=== PATIENT | female | born 1995 | race Caucasian/White ===

== ENCOUNTER → 2017-03-05 | Outpatient (CLI) | payer BC ==
[2017-03-05 09:42] LABS: Basophils % (A) 0 %; CH 29.8; CHCM 34.4; Eosinophils # (A) 0.4 k/uL (0-0.7); Eosinophils % (A) 3 %; HCT 39.6 % (34.0-46.0); HDW 2.44; Luc # (Auto) 0.12; Luc % (Auto) 1; Lymphocytes # (A) 1.6 k/uL (1.0-4.8); Lymphocytes % (A) 14 %; MCH 28.4 pg (25.0-35.0); MCHC 32.7 g/dL (31.0-37.0); MCV 86.9 fL (80.0-100.0); Mean Platelet Volume 6.7; Monocytes # (A) 0.4 k/uL (0-1.0); Monocytes % (A) 4 %; Neutrophils # (A) 8.9 k/uL (1.3-7.7); Neutrophils % (A) 78 %; RBC 4.56 m/uL (3.80-5.40); RDW 13.4 % (11.5-15.5); WBC 11.5 k/uL (4.0-11.0); WBC (Perox) 11.97
[2017-03-05 09:54] LABS: ALT 27 U/L (9-52); AST 15 U/L (14-36); Alkaline Phosphatase 77 U/L (38-126); Anion Gap 10 mmol/L; Blood Urea Nitrogen 6 mg/dL (7-17); Calcium 9.7 mg/dL (8.4-10.2); Carbon Dioxide 22 mmol/L (22-30); Chloride 106 mmol/L (98-107); Cholesterol 180 mg/dL (<200); Glucose 74 mg/dL (74-99); HDL Cholesterol 73 mg/dL (40-60); Non-African American GFR(MDRD) >60 (>60 ml/min/1.73 sqM); Potassium 4.2 mmol/L (3.5-5.1); Sodium 138 mmol/L (137-145); Total Bilirubin 0.2 mg/dL (0.2-1.3); Total Protein 7.1 g/dL (6.3-8.2)
[2017-03-05 10:22] LABS: Hepatitis B Surface Ag Index 0.05
[2017-03-05 18:39] LABS: Treponemal Ab Non-Reactive (Non-Reactive)
== END | disposition home or self-care (01) ==
LOC: LABWHC1 09:08
PROVIDERS: ATTEND Family Medicine
DX: O00.01 Abdominal pregnancy with intrauterine pregnancy (principal); J30.9 Allergic rhinitis, unspecified; R06.2 Wheezing; R53.83 Other fatigue; Z13.220 Encounter for screening for lipoid disorders; Z3A.00 Weeks of gestation of pregnancy not specified
CPT/HCPCS: 36415; 80053; 80061; 82103; 82104; 82785; 84439; 84443; 84702; 85025; 86762; 86780; 86850; 86900; 86901; 87340; 87390

== ENCOUNTER → 2017-06-03 | Outpatient (CLI) | payer BC, OTHER ==
[2017-06-03 09:51] LABS: CH 28.7; HCT 35.5 % (34.0-46.0); HDW 2.67; MCV 90.1 fL (80.0-100.0); RBC 3.93 m/uL (3.80-5.40); RDW 13.3 % (11.5-15.5); WBC 13.4 k/uL (4.0-11.0)
== END | disposition home or self-care (01) ==
LOC: LABWHC1 09:19
PROVIDERS: ATTEND Obstetrics & Gynecology
DX: Z34.82 Encounter for supervision of other normal pregnancy, second trimester (principal); Z3A.00 Weeks of gestation of pregnancy not specified
CPT/HCPCS: 36415; 82950; 85027

== ENCOUNTER → 2017-06-11 | Outpatient (CLI) | payer BC, OTHER ==
[2017-06-11 11:44] LABS: Glucose 3 Hour, Gest 104 mg/dL
== END | disposition home or self-care (01) ==
LOC: LABWHC1 07:06
PROVIDERS: ATTEND Obstetrics & Gynecology
DX: O99.810 Abnormal glucose complicating pregnancy (principal); Z3A.00 Weeks of gestation of pregnancy not specified
CPT/HCPCS: 36415; 82951; 82952

== ENCOUNTER 2017-07-17 16:54 | Outpatient (CLI) | payer BC, OTHER ==
[2017-07-17 17:40] LABS: Appearance,Urine Clear (Clear); Bilirubin,Urine Negative (Negative); Glucose,Urine (UA) Negative (Negative); Ketones,Urine Negative (Negative); Leukocyte Esterase,Urine Negative (Negative); Nitrite,Urine Negative (Negative); Protein,Urine Negative (Negative); Specific Gravity,Urine 1.003 (1.001-1.035); UA Billing (MACRO vs. MICRO) CHEM; Urobilinogen,Urine <2.0 mg/dL (<2.0)
[2017-07-17 17:51] VITALS: BP 161/92; PULSE 126; RESP 16; TEMP 98.3
[2017-07-17 18:11] LABS: Basophils % (A) 0 %; CH 28.8; CHCM 34.7; Eosinophils # (A) 0.2 k/uL (0-0.7); Eosinophils % (A) 1 %; HCT 33.6 % (34.0-46.0); HDW 2.92; HGB 11.3 gm/dL (11.4-16.0); Luc # (Auto) 0.15; Luc % (Auto) 1; Lymphocytes # (A) 1.7 k/uL (1.0-4.8); Lymphocytes % (A) 14 %; MCHC 33.5 g/dL (31.0-37.0); Mean Platelet Volume 6.5; Monocytes # (A) 0.4 k/uL (0-1.0); Monocytes % (A) 3 %; Neutrophils # (A) 9.8 k/uL (1.3-7.7); Neutrophils % (A) 80 %; RBC 4.03 m/uL (3.80-5.40); WBC 12.2 k/uL (3.8-10.6); WBC (Perox) 11.77
[2017-07-17 18:13] LABS: MCV 83.5 fL (80.0-100.0)
[2017-07-17 18:54] LABS: ALT 26 U/L (9-52); AST 14 U/L (14-36); Blood Urea Nitrogen 6 mg/dL (7-17); LDH 449 U/L (313-618); Non-African American GFR(MDRD) >60 (>60 ml/min/1.73 sqM); Uric Acid 3.9 mg/dL (3.7-7.4)
--- NOTE | 2017-07-17 19:57 | P.MSEPDOC ---
Presenting Problems - Arrival Data Date of Arrival on Unit: 07/17/17 Time of Arrival on Unit: 16:54 Mode of Transport: Ambulatory - Complaint OB-Reason for Admission/Chief Complaint: Elevated Blood Pressure Comment: Pt states BP at work 157/103 Medical History - Information : 1 Para: 0 Term: 0 : 0 Abortions: Spontaneous or Elective: 0 Number of Living Children: 0 - Gestational Age Gestational Age by MINGO (wks/days): 31 Weeks and 4 Days Review of Systems - Review of Systems Constitutional: No problems Breast: No problems ENT: No problems Cardiovascular: No problems Respiratory: No problems Gastrointestinal: No problems Genitourinary: No problems Musculoskeletal: No problems Neurological: No problems Skin: No problems Vital Signs - Temperature Temperature: 98.3 F Temperature Source: Temporal Artery Scan - Pulse Pulse Oximetery Pulse Rate: 126 Pulse Assessment Method: Pulse Oximetry - Respirations Respiratory Rate: 16 Oxygen Delivery Method: Room Air O2 Sat by Pulse Oximetry: 99 - Blood Pressure Right Arm Sitting Blood Pressure: 161/92 Blood Pressure Mean: 115 Blood Pressure Source: Automatic Cuff Medical Screen Scoring (Pre) - Cervical Exam Dilation: Exam Deferred Effacement: Exam Deferred Membranes: Intact - Uterine Contractions Frequency: N/A - Maternal Vital Signs Maternal Temperature: N/A Maternal Blood Pressure: Systolic >139 = 2 Signs of Preeclampsia: N/A Maternal Respirations: N/A - Pain Assessment Pain Intensity: 0 - Maternal Trauma Maternal Trauma: N/A - Assessment Baseline FHR: 160 Heart Rate - NICHD Category: Category I (Normal) = 0 NST: Reactive Position: N/A Station: N/A - Total Score Total Score (Pre): 2 - Level of Risk Level of Risk: Low (0-5) Physician Notification (Pre) - Physician Notified Physician Notified Date: 07/17/17 Physician Notified Time: 17:17 Physician/Practitioner Notifed:: Jarod Spoke With: Jarod New Order Received: Yes - Notification Comment Comment: [facility] labs including LDH Disposition - Disposition OB Disposition: Physician follow up in office, Discharge to home Discharge Date: 07/17/17 Discharge Time: 19:22 I agree with the RN Medical Screening Exam: Yes Risk & Benefit of care provided described in d/c instruction: Yes Risk & Benefit of Care Comment: Offered to either keep patient overnight for observation or discharge home on modified bedrest and follow up with Dr. Silva tomorrow am in the office. She requested to go home and follow up with Dr. Silva in the morning. She was advised to return to hospital immediately if any symptoms of pre-eclampsia. Advised off work until seen by Dr. Silva. Diagnosis: UNSPECIFIED MATERNAL HYPERTENSION, THIRD TRIMESTER
== END 2017-07-17 19:22 | disposition home or self-care (01) ==
LOC: FBPOP 16:54
PROVIDERS: ATTEND Obstetrics & Gynecology
DX: O16.3 Unspecified maternal hypertension, third trimester (principal); Z3A.31 31 weeks gestation of pregnancy
CPT/HCPCS: 59025; 81003; 82565; 83615; 84450; 84460; 84520; 84550; 85025; 99215

== ENCOUNTER 2017-07-24 13:13 | Outpatient (CLI) | payer BC, OTHER ==
[2017-07-24] MEDS ORDERED: BETAMET ACET-BETAMETH SOD PHOS 6 MG/ML VIAL IM SCH (13:30)
[2017-07-24 16:40] VITALS: PULSE 101; RESP 16; TEMP 97.7
--- NOTE | 2017-07-27 03:04 | P.MSEPDOC ---
Presenting Problems - Arrival Data Date of Arrival on Unit: 07/24/17 Time of Arrival on Unit: 13:25 Mode of Transport: Ambulatory Medical History - Information : 1 Para: 0 Term: 0 : 0 Abortions: Spontaneous or Elective: 0 Number of Living Children: 0 - Gestational Age Gestational Age by MINGO (wks/days): 32 Weeks and 4 Days - History Comment: pt to triage for second dose of celestone Review of Systems - Review of Systems Constitutional: No problems Breast: No problems ENT: No problems Cardiovascular: No problems Respiratory: No problems Gastrointestinal: No problems Genitourinary: No problems Musculoskeletal: No problems Neurological: No problems Skin: No problems Vital Signs - Temperature Temperature: 97.7 F Temperature Source: Temporal Artery Scan - Pulse Right Brachial Pulse Rate: 101 Pulse Assessment Method: Automatic Cuff - Respirations Respiratory Rate: 16 Oxygen Delivery Method: Room Air Medical Screen Scoring (Pre) - Cervical Exam Dilation: Exam Deferred - Uterine Contractions Frequency: N/A Duration: N/A Intensity: N/A - Maternal Vital Signs Maternal Temperature: N/A Maternal Blood Pressure: N/A Signs of Preeclampsia: N/A Maternal Respirations: N/A - Pain Assessment Pain Scale Used: Numeric (1 - 10) Pain Intensity: 0 - Maternal Trauma Maternal Trauma: N/A - Assessment Baseline FHR: 145 Heart Rate - NICHD Category: Category I (Normal) = 0 NST: Reactive Position: N/A Station: N/A - Total Score Total Score (Pre): 0 - Level of Risk Level of Risk: Low (0-5) Physician Notification (Pre) - Physician Notified Physician Notified Date: 07/24/17 Physician Notified Time: 14:30 Physician/Practitioner Notifed:: karlos Spoke With: karlos New Order Received: Yes - Notification Comment Comment: after dose of celestone and reactive nst pt may be discharged home Physician Notification (Post) - Notification Comment Comment: celestone given, discharge instructions given. Disposition - Disposition OB Disposition: Discharge to home Discharge Date: 07/24/17 Discharge Time: 14:19 I agree with the RN Medical Screening Exam: Yes Risk & Benefit of care provided described in d/c instruction: Yes Diagnosis: GESTATIONAL HTN W/O SIGNIFICANT PROTEINURIA, THIRD TRIMESTER
== END 2017-07-24 14:21 | disposition home or self-care (01) ==
LOC: FBPOP 13:13
PROVIDERS: ATTEND Obstetrics & Gynecology
DX: O13.3 Gestational [pregnancy-induced] hypertension without significant proteinuria, third trimester (principal); Z68.32 Body mass index [BMI] 32.0-32.9, adult
CPT/HCPCS: 59025; 99214; 96372; J0702

== ENCOUNTER → 2017-08-01 | Outpatient (CLI) | payer BC, OTHER ==
[2017-08-01 14:37] LABS: HCT 34.3 % (34.0-46.0); HGB 11.3 gm/dL (11.4-16.0); MCH 27.8 pg (25.0-35.0); MCV 84.3 fL (80.0-100.0); Mean Platelet Volume 6.9; Platelet Count 376 k/uL (150-450); RBC 4.07 m/uL (3.80-5.40); RDW 14.5 % (11.5-15.5); WBC 16.5 k/uL (3.8-10.6)
[2017-08-01 14:49] LABS: ALT 31 U/L (9-52); AST 15 U/L (14-36); LDH 437 U/L (313-618); Uric Acid 5.1 mg/dL (3.7-7.4)
[2017-08-01 14:52] LABS: Creatinine,Urine Random 30.1 mg/dL
== END | disposition home or self-care (01) ==
LOC: LABWHC1 14:11
PROVIDERS: ATTEND Obstetrics & Gynecology
DX: O16.9 Unspecified maternal hypertension, unspecified trimester (principal); Z3A.00 Weeks of gestation of pregnancy not specified
CPT/HCPCS: 36415; 82565; 82570; 83615; 84156; 84450; 84460; 84550; 85027

== ENCOUNTER 2017-08-08 09:41 | Outpatient (CLI) | payer BC, OTHER ==
[2017-08-08 10:25] VITALS: PULSE 113; RESP 17; TEMP 97.3
[2017-08-08 10:31] LABS: Basophils # (A) 0.1 k/uL (0-0.2); Basophils % (A) 0 %; Eosinophils # (A) 0.1 k/uL (0-0.7); Eosinophils % (A) 1 %; HCT 31.1 % (34.0-46.0); HGB 10.4 gm/dL (11.4-16.0); Lymphocytes # (A) 1.6 k/uL (1.0-4.8); Lymphocytes % (A) 13 %; MCHC 33.4 g/dL (31.0-37.0); MCV 83.7 fL (80.0-100.0); Mean Platelet Volume 7.2; Monocytes # (A) 0.5 k/uL (0-1.0); Monocytes % (A) 4 %; Neutrophils # (A) 10.1 k/uL (1.3-7.7); Neutrophils % (A) 81 %; Platelet Count 290 k/uL (150-450); RBC 3.71 m/uL (3.80-5.40); RDW 14.7 % (11.5-15.5); WBC 12.4 k/uL (3.8-10.6)
[2017-08-08 10:39] LABS: ALT 25 U/L (9-52); AST 14 U/L (14-36); Blood Urea Nitrogen 9 mg/dL (7-17); Uric Acid 5.5 mg/dL (3.7-7.4)
[2017-08-08 11:04] LABS: Amorphous Sediment,Urine Rare /hpf; Appearance,Urine Cloudy (Clear); Bacteria,Urine Moderate /hpf; Bilirubin,Urine Negative (Negative); Blood,Urine Negative (Negative); Color,Urine Yellow; Glucose,Urine (UA) Negative (Negative); Ketones,Urine Negative (Negative); Leukocyte Esterase,Urine Small (Negative); Mucus,Urine Rare /hpf; Nitrite,Urine Negative (Negative); Protein,Urine Negative (Negative); RBC,Urine 1 /hpf (0-5); Squamous Epithelial Cell,Urine 9 /hpf (0-4); Urobilinogen,Urine <2.0 mg/dL (<2.0); WBC,Urine 6 /hpf (0-5)
[2017-08-08 12:28] VITALS: BP 141/94
--- NOTE | 2017-08-08 12:48 | P.MSEPDOC ---
Presenting Problems - Arrival Data Date of Arrival on Unit: 08/08/17 Time of Arrival on Unit: 09:41 Mode of Transport: Ambulatory - Complaint OB-Reason for Admission/Chief Complaint: NST, PIH Comment: [facility] labs. Written script per Dr. Silva. Medical History - Information : 1 Para: 0 Term: 0 : 0 Abortions: Spontaneous or Elective: 0 Number of Living Children: 0 - Gestational Age Gestational Age by MINGO (wks/days): 34 Weeks and 5 Days - History Comment: Mild preeclampsia per Dr. Silva. Review of Systems - Review of Systems Constitutional: No problems Breast: No problems ENT: No problems Cardiovascular: No problems Respiratory: No problems Gastrointestinal: No problems Genitourinary: No problems Musculoskeletal: No problems Neurological: No problems Skin: No problems Vital Signs - Temperature Temperature: 97.3 F Temperature Source: Temporal Artery Scan - Pulse Pulse Oximetery Pulse Rate: 113 Pulse Assessment Method: Pulse Oximetry - Respirations Respiratory Rate: 17 Oxygen Delivery Method: Room Air - Blood Pressure Right Arm Blood Pressure: 141/94 Blood Pressure Mean: 109 Blood Pressure Source: Automatic Cuff Medical Screen Scoring (Pre) - Cervical Exam Dilation: Exam Deferred Effacement: Exam Deferred Membranes: Intact - Uterine Contractions Frequency: N/A Duration: N/A Intensity: N/A - Maternal Vital Signs Maternal Temperature: N/A Maternal Blood Pressure: N/A Signs of Preeclampsia: N/A Maternal Respirations: N/A - Pain Assessment Pain Scale Used: Numeric (1 - 10) Pain Intensity: 0 - Maternal Trauma Maternal Trauma: N/A - Assessment Baseline FHR: 145 Heart Rate - NICHD Category: Category I (Normal) = 0 NST: Reactive Position: N/A Station: N/A - Total Score Total Score (Pre): 0 - Level of Risk Level of Risk: N/A Physician Notification (Pre) - Physician Notified Physician Notified Date: 08/08/17 Physician Notified Time: 10:20 Physician/Practitioner Notifed:: Ricardo Spoke With: Ricardo New Order Received: Yes (Previous written orders reviewed) Medical Screen Scoring (Post) - Cervical Exam Dilation: Exam Deferred Effacement: Exam Deferred Membranes: Intact - Uterine Contractions Frequency: N/A Duration: N/A Intensity: N/A - Maternal Vital Signs Maternal Temperature: N/A Signs of Preeclampsia: N/A Maternal Respirations: N/A - Pain Assessment Pain Scale Used: Numeric (1 - 10) Pain Intensity: 0 - Maternal Trauma Maternal Trauma: N/A - Assessment Heart Rate: 145 Heart Rate - NICHD Category: Category I (Normal) = 0 NST: Reactive Position: N/A Station: N/A - Total Score Total Score (Post): 0 - Post Treatment Level of Risk Post Treatment Level of Risk: Low (0-5) Physician Notification (Post) - Physician Notified Physician Notified Date: 08/08/17 Physician Notified Time: 11:35 Physician/Practitioner Notified:: ricardo Spoke With: ricardo New Order Received: Yes (discharge orders) Disposition - Disposition OB Disposition: Discharge to home Discharge Date: 08/08/17 Discharge Time: 11:40 I agree with the RN Medical Screening Exam: Yes Risk & Benefit of care provided described in d/c instruction: Yes Diagnosis: GESTATIONAL HTN W/O SIGNIFICANT PROTEINURIA, THIRD TRIMESTER
== END 2017-08-08 11:40 | disposition home or self-care (01) ==
LOC: FBPOP 09:41
PROVIDERS: ATTEND Obstetrics & Gynecology
DX: O13.3 Gestational [pregnancy-induced] hypertension without significant proteinuria, third trimester (principal); Z3A.34 34 weeks gestation of pregnancy
CPT/HCPCS: 59025; 81001; 82565; 82570; 83615; 84156; 84450; 84460; 84520; 84550; 85025; 99215

== ENCOUNTER 2017-08-18 11:38 | Outpatient (CLI) | payer BC, OTHER ==
[2017-08-18 12:23] VITALS: BP 146/86; PULSE 110; RESP 17; TEMP 97.8
== END 2017-08-18 12:55 | disposition home or self-care (01) ==
LOC: FBPOP 11:38
PROVIDERS: ATTEND Obstetrics & Gynecology
DX: O26.93 Pregnancy related conditions, unspecified, third trimester (principal); Z3A.36 36 weeks gestation of pregnancy
CPT/HCPCS: 59025

== ENCOUNTER 2017-08-25 15:35 | Inpatient (IN) | payer BC, OTHER ==
[2017-08-25] MEDS ORDERED: DINOPROSTONE 10 MG INSERT.ER VAGINAL ONE (15:49)
[2017-08-25 15:57] VITALS: BMI 38.3
[2017-08-25] MEDS ORDERED: LIDOCAINE 1% (PF) 10 MG/ML (30 ML SDV) SQ PRN (17:03)
[2017-08-25] MEDS ORDERED: TERBUTALINE 1 MG/ML VIAL SQ PRN (17:03)
[2017-08-25] MEDS ORDERED: METHYLERGONOVINE 0.2 MG/ML 1 ML AMP IM PRN (17:03)
[2017-08-25] MEDS ORDERED: CARBOPROST TROMETHAMINE 250 MCG/ML 1 ML AMP IM PRN (17:03)
[2017-08-25] MEDS ORDERED: OXYTOCIN 10 UNIT/ML 1 ML VIAL IM PRN (17:03)
[2017-08-25] MEDS: LACTATED RINGERS 1,000 ML IV SCH (19:49)
[2017-08-25] MEDS: OXYTOCIN 20 UNITS/1000 ML NS 1,000 ML IV SCH (19:49)
[2017-08-25] MEDS: FAMOTIDINE 20 MG TAB PO SCH (21:13)
[2017-08-25] MEDS: LABETALOL 200 MG TAB PO SCH (21:13)
[2017-08-26] MEDS: LACTATED RINGERS 1,000 ML IV SCH ×4 (00:13→16:27)
[2017-08-26 00:26] LABS: Basophils % (A) 0 %; Eosinophils # (A) 0.2 k/uL (0-0.7); Eosinophils % (A) 1 %; HCT 32.7 % (34.0-46.0); Lymphocytes # (A) 1.9 k/uL (1.0-4.8); Lymphocytes % (A) 12 %; MCH 28.9 pg (25.0-35.0); MCHC 33.6 g/dL (31.0-37.0); Mean Platelet Volume 6.7; Monocytes # (A) 0.6 k/uL (0-1.0); Monocytes % (A) 4 %; Neutrophils # (A) 12.9 k/uL (1.3-7.7); Neutrophils % (A) 81 %; Platelet Count 330 k/uL (150-450); RBC 3.81 m/uL (3.80-5.40); RDW 13.9 % (11.5-15.5); WBC 15.8 k/uL (3.8-10.6)
[2017-08-26] MEDS: BUTORPHANOL 1 MG/ML 1 ML VIAL IV PRN ×6 (00:29→12:04)
[2017-08-26 00:34] LABS: INR 0.9 (<1.2); Partial Thromboplastin Time 23.8 sec (22.0-30.0); Prothrombin Time 9.3 sec (9.0-12.0)
[2017-08-26] MEDS ORDERED: AMPICILLIN 2,000 MG in SODIUM CHLORIDE 0.9% 100 ML IVPB STA (03:11)
[2017-08-26] MEDS: OXYTOCIN 20 UNITS/1000 ML NS 1,000 ML IV SCH (06:19)
[2017-08-26] MEDS: LABETALOL 200 MG TAB PO SCH ×2 (07:28→16:23)
[2017-08-26] MEDS: AMPICILLIN 1,000 MG in SODIUM CHLORIDE 0.9% 50 ML IVPB SCH ×3 (07:51→16:23)
[2017-08-26] MEDS: FAMOTIDINE 20 MG TAB PO SCH ×2 (10:40→21:28)
[2017-08-26] MEDS: LORATADINE 10 MG TAB PO SCH (10:40)
[2017-08-26] MEDS ORDERED: BUPIVACAINE (PF) 0.25% 30 ML VIAL ONE (13:20)
[2017-08-26] MEDS ORDERED: fentaNYL (PF) 50 MCG/ML 5 ML AMP ONE (13:20)
[2017-08-26] MEDS ORDERED: SODIUM CHLORIDE 0.9% 100 ML BAG ONE (13:20)
[2017-08-26] MEDS ORDERED: BUPIVACAINE (PF) 0.25% 25 ML, fentaNYL (PF) 200 MCG in SODIUM CHLORIDE 0.9% 71 ML EPIDURAL ONE (16:27)
--- NOTE | 2017-08-26 19:08 | P.HPOB ---
History of Present Illness H&P Date: 08/25/17 Chief Complaint: mild pre-eclampsia 22 year old presents at 37 weeks 1 day for 2 stage induction of labor due to mild pre-eclampsia. Her cervix is fingertip, thick, -3 station. She was not homa. heart tones 130-135 with moderate variability and reactive. She has been followed by myself and maternal medicine for at first to gestational hypertension and placed on labetalol 200 mg 3 times a day. She has been getting preeclamptic labs weekly and her P/C ratio at one point had been elevated at 0.56. This made the diagnosis of mild preeclampsia at 34 weeks gestation but when I consulted Dr. Wang from maternal medicine, he said to continue with the course of action of weekly biophysical profiles, biweekly NSTs and weekly preeclamptic labs. He recommended delivery at 37 weeks. Review of Systems All systems: negative Constitutional: Denies chills, Denies fever Eyes: denies blurred vision, denies pain Ears, nose, mouth and throat: Denies headache, Denies sore throat Cardiovascular: Denies chest pain, Denies shortness of breath Respiratory: Denies cough Gastrointestinal: Denies abdominal pain, Denies diarrhea, Denies nausea, Denies vomiting Genitourinary: Denies dysuria, Denies hematuria Musculoskeletal: Denies myalgias Integumentary: Denies pruritus, Denies rash Neurological: Denies numbness, Denies weakness Psychiatric: Denies anxiety, Denies depression Endocrine: Denies fatigue, Denies weight change Past Medical History Past Medical History: No Reported History Additional Past Medical History / Comment(s): Obstetrics history: This is her mother's first and she's had care with me since 11 weeks gestation. Blood type A+, amylase negative, rubella immune, RPR nonreactive, hepatitis B negative, HIV nonreactive. She declined quad screen, normal anatomy ultrasound, abnormal 1 hour but a normal three-hour glucose tolerance test. She's been on labetalol 200 mg 3 times a day since 31 weeks gestation. She has been followed with biweekly NSTs, biophysical profiles, and weekly preeclamptic labs. She does have mild preeclampsia diagnosed at 34 weeks. History of Any Multi-Drug Resistant Organisms: None Reported Past Surgical History: Adenoidectomy, Tonsillectomy Past Anesthesia/Blood Transfusion Reactions: No Reported Reaction Past Psychological History: No Psychological Hx Reported Smoking Status: Never smoker Past Alcohol Use History: None Reported Past Drug Use History: None Reported - Past Family History Mother Family Medical History: Hypertension Medications and Allergies Home Medications Medication Instructions Recorded Confirmed Type Loratadine 10 mg PO DAILY 07/17/17 08/25/17 History Pnv,Calcium 72/Iron/Folic Acid 1 tab PO DAILY 07/17/17 08/25/17 History [ Plus Tablet] Labetalol [Trandate] 200 mg PO TID 07/24/17 08/25/17 History Aspirin 81 mg PO DAILY 08/18/17 08/25/17 History Allergies Allergy/AdvReac Type Severity Reaction Status Date / Time No Known Allergies Allergy Verified 08/25/17 15:49 Exam Osteopathic Statement: *. No significant issues noted on an osteopathic structural exam other than those noted in the History and Physical/Consult. - Vital Signs Vital signs: Intake and Output 08/26/17 08/26/17 08/26/17 06:59 14:59 22:59 Intake Total 1000 Balance 1000 Intake: Intake, IV Titration 1000 Amount Lactated Ringers 1,000 ml 1000 @ 125 mls/hr IV .Q8H ROSE MARIE Rx#:[id number] Other: # Voids 1 1 Heart: Regular rate and rhythm Lungs: Clear to auscultation bilaterally Abdomen: Soft, nontender Extremities: Negative Homans sign, 2+ out of 4 DTR, no clonus Results Result Diagrams: 08/26/17 00:17 Abnormal Lab Results - Last 24 Hours (Table) 08/26/17 Range/Units 00:17 WBC 15.8 H (3.8-10.6) k/uL Hgb 11.0 L (11.4-16.0) gm/dL Hct 32.7 L (34.0-46.0) % Neutrophils # 12.9 H (1.3-7.7) k/uL Assessment and Plan (1) Mild preeclampsia Current Visit: Yes Status: Acute Code(s): O14.00 - MILD TO MODERATE PRE- ECLAMPSIA, UNSPECIFIED TRIMESTER SNOMED Code(s): 23410976 Plan: 1. Induction of labor with Cervidil tonight and then amniotomy and Pitocin in the morning. 2. Continue labetalol 3 times daily 3. Anticipate normal vaginal delivery
--- NOTE | 2017-08-26 19:11 | P.PROBDLV ---
Vaginal Delivery Note - . Vaginal Delivery Note: 22-year-old presents at 37 weeks and 1 day for induction of labor due to mild preeclampsia. Her cervix is fingertip dilated, thick, -3 station. heart tones are 130-135 with moderate variability and reactive. Cervidil was placed around 5 PM. In the morning when the Cervidil was removed her cervix was 1 cm dilated, 60% effaced and -3 station. Pitocin was started. Amniotomy was performed at 8:56 AM and clear fluid noted. When she was uncomfortable she did get an epidural. Her cervix was completely dilated at 1745. She pushed, and delivered a viable female over intact perineum under epidural anesthesia at 1825. Head delivered OA, nuchal cord 1 easily reduced, anterior shoulder delivered gentle downward traction followed by posterior shoulder and rest of body. Nose and mouth bulb suctioned, cord clamped and cut, infant placed on mother's abdomen. Apgars 8, 9, weight 5 lbs. 2 oz. Placenta delivered spontaneously, intact with three-vessel cord at 1832. Vagina, cervix , and perineum were inspected. Second-degree midline laceration was repaired with 2-0 and 3-0 Vicryl. Estimated blood loss 200 mL. Mother and baby in stable condition.
[2017-08-26] MEDS ORDERED: HYDROCORTISONE 2.5% RECTAL CREAM 30 GM TUBE RECTAL PRN (19:12)
[2017-08-26] MEDS ORDERED: SIMETHICONE 80 MG CHEWABLE PO PRN (19:12)
[2017-08-26] MEDS ORDERED: diphenhydrAMINE 25 MG CAP PO PRN (19:12)
[2017-08-26] MEDS ORDERED: diphenhydrAMINE 50 MG CAP PO PRN (19:12)
[2017-08-26] MEDS ORDERED: diphenhydrAMINE 50 MG/ML 1 ML VIAL IVP PRN ×2 (19:12)
[2017-08-26] MEDS ORDERED: BENZOCAINE/MENTHOL SPRAY 1 GM/SPRAY AEROSOL TOPICAL PRN (19:12)
[2017-08-26] MEDS ORDERED: ACETAMINOPHEN TAB 325 MG TAB PO PRN (19:12)
[2017-08-26] MEDS ORDERED: ZOLPIDEM 5 MG TAB PO PRN (19:12)
[2017-08-26] MEDS ORDERED: WITCH HAZEL 1 EACH MED..PAD TOPICAL PRN (19:12)
[2017-08-26] MEDS ORDERED: Acetaminophen-Codeine 300-30mg TAB PO PRN (19:12)
[2017-08-26] MEDS ORDERED: LANOLIN CREAM 5 GM TUBE TOPICAL PRN (19:12)
[2017-08-26] MEDS ORDERED: OXYTOCIN 20 UNITS/1000 ML NS 1,000 ML IV SCH (19:15)
[2017-08-26] MEDS: SENNOSIDES-DOCUSATE SODIUM 1 EACH TAB PO SCH (19:32)
[2017-08-26] MEDS: IBUPROFEN 600 MG TAB PO PRN (19:33)
[2017-08-26] MEDS: Acetaminophen-Codeine 300-30mg TAB PO PRN (22:23)
[2017-08-27] MEDS: LABETALOL 200 MG TAB PO SCH ×4 (01:15→23:30)
[2017-08-27] MEDS: IBUPROFEN 600 MG TAB PO PRN ×3 (04:28→18:58)
[2017-08-27] MEDS: LORATADINE 10 MG TAB PO SCH (07:54)
[2017-08-27] MEDS: Acetaminophen-Codeine 300-30mg TAB PO PRN ×2 (07:54→22:24)
[2017-08-27] MEDS: SENNOSIDES-DOCUSATE SODIUM 1 EACH TAB PO SCH (07:56)
[2017-08-27] MEDS: FAMOTIDINE 20 MG TAB PO SCH ×2 (08:00→23:29)
--- NOTE | 2017-08-27 08:32 | P.PNOBGVD ---
Subjective - Subjective Principal diagnosis: S/P NVD PPD #1 Interval history: Pt seen and examined. Denies N/V, F/C, CP, SOB, Calf pain. Patient reports: Reports appetite normal, Reports voiding normally, Reports pain well controlled, Reports ambulating normally : doing well Objective - Latest Vital Signs Latest vital signs: Vital Signs Temp Pulse Resp BP 08/27/17 04:00 98.3 F 87 18 120/72 08/27/17 00:00 97.3 F L 93 16 120/71 08/26/17 20:51 98.3 F 117 H 18 141/83 08/26/17 20:21 105 H 16 139/79 08/26/17 19:51 120 H 16 146/82 08/26/17 19:36 117 H 16 141/83 08/26/17 19:21 113 H 16 137/79 08/26/17 19:06 117 H 16 150/77 Intake and Output 08/26/17 08/27/17 08/27/17 22:59 06:59 14:59 Other: # Voids 0 - Exam Lungs: bilateral: normal Chest: Normal S1, Normal S2 Extremities: Present: normal Abdomen: Present: normal appearance, soft Uterus: Present: normal, firm Assessment and Plan (1) Mild preeclampsia Current Visit: Yes Status: Acute Code(s): O14.00 - MILD TO MODERATE PRE- ECLAMPSIA, UNSPECIFIED TRIMESTER SNOMED Code(s): 82847129 (2) Status post normal vaginal delivery Current Visit: Yes Status: Acute Code(s): AGG7358 - SNOMED Code(s): 791362804 Plan: 1. cont pp care
[2017-08-27 23:29] VITALS: RESP 16
[2017-08-28] MEDS: IBUPROFEN 600 MG TAB PO PRN (03:31)
[2017-08-28] MEDS: SENNOSIDES-DOCUSATE SODIUM 1 EACH TAB PO SCH ×2 (05:15→10:36)
[2017-08-28] MEDS: LABETALOL 200 MG TAB PO SCH (08:09)
[2017-08-28] MEDS: Acetaminophen-Codeine 300-30mg TAB PO PRN (08:09)
[2017-08-28] MEDS: LORATADINE 10 MG TAB PO SCH (08:10)
--- NOTE | 2017-08-28 09:30 | P.DS ---
Providers Date of admission: 08/25/17 15:35 Expected date of discharge: 08/28/17 Attending physician: Ashleigh Silva Primary care physician: Fiona Frias - [place] Diagnosis(es) (1) Mild preeclampsia Current Visit: Yes Status: Acute (2) Status post normal vaginal delivery Current Visit: Yes Status: Acute Hospital Course: Pt presented for induction of labor for mild pre-eclampsia. She underwent a normal vaginal delivery. Her pp course was uncomplicated. She will be discharged home PPD #2 on labetalol, tylenol #3 and motrin. She will follow up with me in one week for a blood pressure check. Plan - Discharge Summary Discharge Rx Participant: No New Discharge Prescriptions: New Acetaminophen-Codeine 300-30mg [Tylenol w/codeine #3] 2 each PO Q4HR PRN #30 tab PRN Reason: Moderate To Severe Pain Ibuprofen [Motrin] 600 mg PO Q6HR PRN #30 tab PRN Reason: Mild Pain Or Fever >= 100.5 No Action Pnv,Calcium 72/Iron/Folic Acid [ Plus Tablet] 1 tab PO DAILY Loratadine 10 mg PO DAILY Labetalol [Trandate] 200 mg PO TID Aspirin 81 mg PO DAILY Discharge Medication List Loratadine 10 mg PO DAILY 07/17/17 [History] Pnv,Calcium 72/Iron/Folic Acid [ Plus Tablet] 1 tab PO DAILY 07/17/17 [ History] Labetalol [Trandate] 200 mg PO TID 07/24/17 [History] Aspirin 81 mg PO DAILY 08/18/17 [History] Acetaminophen-Codeine 300-30mg [Tylenol w/codeine #3] 2 each PO Q4HR PRN #30 tab 08/28/17 [Rx] Ibuprofen [Motrin] 600 mg PO Q6HR PRN #30 tab 08/28/17 [Rx] Follow up Appointment(s)/Referral(s): Ashleigh Silva DO [Doctor of Osteopathic Medicine] - 1 Week
[2017-08-28 09:46] VITALS: BP 146/83; PULSE 85; TEMP 97.6
[2017-08-28] MEDS: FAMOTIDINE 20 MG TAB PO SCH (10:37)
== END 2017-08-28 11:45 | disposition home or self-care (01) | DRG 775 ==
LOC: 4FBP 15:35
PROVIDERS: ADMIT Obstetrics & Gynecology; ATTEND Obstetrics & Gynecology
DX: O14.04 Mild to moderate pre-eclampsia, complicating childbirth (principal); O69.81X0 Labor and delivery complicated by cord around neck, without compression, not applicable or unspecified; Z37.0 Single live birth; O70.1 Second degree perineal laceration during delivery; Z3A.37 37 weeks gestation of pregnancy; Z79.82 Long term (current) use of aspirin; Z79.899 Other long term (current) drug therapy
CPT/HCPCS: 85025; 85610; 85730; 88307

== ENCOUNTER 2021-06-27 11:27 | Emergency (ER) | payer BC, OTHER ==
[2021-06-27 11:35] VITALS: RESP 18; TEMP 97
--- NOTE | 2021-06-27 12:29 | ED ---
General Adult HPI - General Chief complaint: Back Pain/Injury Stated complaint: 8wks preg/Cough/Back Pain Time Seen by Provider: 06/27/21 12:11 Source: patient, EMS, RN notes reviewed, old records reviewed Mode of arrival: EMS Limitations: no limitations - History of Present Illness Initial comments: Well-appearing 25-year-old female, alert and oriented 4, presents to the emergency room with family member complaining of low back pain after coughing and choking on her cereal this morning at 0930. She states that she felt a pop in her back and has since had pain that radiates down both of her upper legs. She denies any numbness or tingling. She denies any incontinence or saddle anesthesia. She does have a history of preeclampsia with her 4 years ago. She is currently on labetalol and Procardia for her hypertension. she states that she is also 8 weeks . She denies any pelvic pain or vaginal bleeding. She denies any fevers, nausea vomiting diarrhea. -: hour(s) Location: back Radiation: extremity (Bilateral legs), distal Severity scale (1-10): 6 Quality: other (shooting) Consistency: intermittent Improves with: immobilization Worsens with: movement (sitting up) Associated Symptoms: denies other symptoms Treatments Prior to Arrival: heat therapy, other (tylenol) - Related Data Home Medications Medication Instructions Recorded Confirmed Labetalol [Trandate] 100 mg PO BID 06/27/21 06/27/21 Montelukast [Singulair] 10 mg PO DAILY 06/27/21 06/27/21 NIFEdipine [NIFEdipine ER] 30 mg PO DAILY 06/27/21 06/27/21 Allergies Allergy/AdvReac Type Severity Reaction Status Date / Time No Known Allergies Allergy Verified 06/27/21 12:56 Review of Systems ROS Statement: Those systems with pertinent positive or pertinent negative responses have been documented in the HPI. ROS Other: All systems not noted in ROS Statement are negative. Past Medical History Past Medical History: No Reported History Additional Past Medical History / Comment(s): Obstetrics history: This is her mother's first and she's had care with me since 11 weeks gestation. Blood type A+, amylase negative, rubella immune, RPR nonreactive, hepatitis B negative, HIV nonreactive. She declined quad screen, normal anatomy ultrasound, abnormal 1 hour but a normal three-hour glucose tolerance test. She's been on labetalol 200 mg 3 times a day since 31 weeks gestation. She has been followed with biweekly NSTs, biophysical profiles, and weekly preeclamptic labs. She does have mild preeclampsia diagnosed at 34 weeks. History of Any Multi-Drug Resistant Organisms: None Reported Past Surgical History: Adenoidectomy, Tonsillectomy Past Anesthesia/Blood Transfusion Reactions: No Reported Reaction Past Psychological History: No Psychological Hx Reported Smoking Status: Never smoker Past Alcohol Use History: None Reported Past Drug Use History: None Reported - Past Family History Mother Family Medical History: Hypertension General Exam Limitations: no limitations General appearance: alert, in no apparent distress Eye exam: Present: normal appearance, EOMI Neck exam: Present: full ROM Respiratory exam: Present: normal lung sounds bilaterally. Absent: respiratory distress, wheezes, rales, rhonchi, stridor Cardiovascular Exam: Present: tachycardia, normal heart sounds. Absent: JVD GI/Abdominal exam: Present: soft, normal bowel sounds. Absent: distended, tenderness, guarding, rebound, rigid Extremities exam: Present: normal inspection, full ROM, normal capillary refill. Absent: tenderness, pedal edema, joint swelling, calf tenderness Back exam: Present: normal inspection, tenderness (Lumbar sacral), paraspinal tenderness. Absent: CVA tenderness (R), CVA tenderness (L), rash noted Expanded Back exam: Sciatic Notch Tenderness: Left, Right, Positive Straight Leg Raise: Left, Right Neurological exam: Present: alert, oriented X3 Psychiatric exam: Present: normal affect, normal mood Skin exam: Present: warm, dry, intact, normal color. Absent: rash, cyanosis, diaphoretic, petechiae, pallor Course Vital Signs 06/27/21 06/27/21 11:28 13:24 Temperature 97 F L Pulse Rate 106 H 100 Respiratory 18 18 Rate Blood Pressure 141/88 130/82 O2 Sat by Pulse 98 97 Oximetry Medical Decision Making - Medical Decision Making This is a well-appearing 25-year-old female that presents to the emergency room with complaints of low back pain that radiates behind both of her thighs. She states that it came on suddenly when she was choking on her cereal this morning around 9:30. She denies any vomiting chest pain or difficulty in breathing. She states that she is 8 weeks . She denies any vaginal bleeding or pelvic cramping. Vital signs are stable. Urinalysis clear of infection and no evidence of protein or blood. She does have a history of hypertension and is currently being treated with Procardia and labetalol. This is likely musculoskeletal pain and she states that her pain has resolved after the Tylenol and warm compresses. She was directed to return to emergency room with any new or worsening symptoms and follow up with her primary care doctor this week. - Lab Data Lab Results 06/27/21 06/27/21 Range/Units 12:40 12:40 Urine Color Light Yellow Urine Appearance Clear (Clear) Urine pH 7.5 (5.0-8.0) Ur Specific [place] 1.009 (1.001-1.035) Urine Protein Negative (Negative) Urine Glucose (UA) Negative (Negative) Urine Ketones 1+ H (Negative) Urine Blood Negative (Negative) Urine Nitrite Negative (Negative) Urine Bilirubin Negative (Negative) Urine Urobilinogen <2.0 (<2.0) mg/dL Ur Leukocyte Esterase Negative (Negative) Urine HCG, Qual Detected (Not Detectd) Disposition Clinical Impression: Musculoskeletal back pain Disposition: HOME SELF-CARE Condition: Good Instructions (If sedation given, give patient instructions): Acute Low Back Pain (ED) Additional Instructions: You can take Tylenol 650 mg every 4-6 hours as needed for pain. You can also use a heat pack or an ice pack for pain relief. Return to the emergency room with any new or concerning symptoms. Follow-up with the primary care doctor next week. Is patient prescribed a controlled substance at d/c from ED?: No Referrals: Rashmi You MD [Primary Care Provider] - 1-2 days Time of Disposition: 13:19
[2021-06-27 13:10] LABS: Appearance,Urine Clear (Clear); Bilirubin,Urine Negative (Negative); Blood,Urine Negative (Negative); Color,Urine Light Yellow; Glucose,Urine (UA) Negative (Negative); Ketones,Urine 1+ (Negative); Leukocyte Esterase,Urine Negative (Negative); Nitrite,Urine Negative (Negative); PH, Urine 7.5 (5.0-8.0); Protein,Urine Negative (Negative); Specific Gravity,Urine 1.009 (1.001-1.035); Urobilinogen,Urine <2.0 mg/dL (<2.0)
[2021-06-27 13:25] VITALS: BP 130/82; PULSE 100
== END 2021-06-27 13:41 | disposition home or self-care (01) ==
LOC: EC 11:27
DX: O26.891 Other specified pregnancy related conditions, first trimester (principal); M54.59 Other low back pain; Z3A.08 8 weeks gestation of pregnancy
CPT/HCPCS: 81003; 81025; 99283

== ENCOUNTER 2022-01-23 17:00 | Inpatient (IN) | payer BC, OTHER ==
[2022-01-24] MEDS ORDERED: OXYTOCIN 10 UNIT/ML 1 ML VIAL IM PRN (06:11)
[2022-01-24] MEDS ORDERED: CARBOPROST TROMETHAMINE 250 MCG/ML 1 ML AMP IM PRN (06:11)
[2022-01-24] MEDS ORDERED: LIDOCAINE 0.5% (PF) 5 MG/ML (50 ML SDV) SQ PRN (06:11)
[2022-01-24] MEDS ORDERED: METHYLERGONOVINE 0.2 MG/ML 1 ML AMP IM PRN (06:11)
[2022-01-24] MEDS ORDERED: TERBUTALINE 1 MG/ML VIAL SQ PRN (06:11)
[2022-01-24] MEDS ORDERED: OXYTOCIN 30 UNITS/500 ML NS 30 UNIT in SALINE 1 500ML.BAG IV SCH (06:15)
[2022-01-24 06:23] LABS: Basophils # (A) 0.1 k/uL (0-0.2); Basophils % (A) 0 %; Eosinophils # (A) 0.1 k/uL (0-0.7); Eosinophils % (A) 1 %; HCT 33.5 % (34.0-46.0); HGB 11.2 gm/dL (11.4-16.0); Lymphocytes # (A) 1.8 k/uL (1.0-4.8); Lymphocytes % (A) 16 %; MCH 27.7 pg (25.0-35.0); MCHC 33.4 g/dL (31.0-37.0); Mean Platelet Volume 7.5; Monocytes # (A) 0.6 k/uL (0-1.0); Monocytes % (A) 5 %; Neutrophils # (A) 8.9 k/uL (1.3-7.7); Neutrophils % (A) 77 %; Platelet Count 318 k/uL (150-450); RBC 4.03 m/uL (3.80-5.40); RDW 13.6 % (11.5-15.5); WBC 11.6 k/uL (3.8-10.6)
[2022-01-24] MEDS: LACTATED RINGERS 1,000 ML IV SCH ×2 (06:42→18:58)
--- NOTE | 2022-01-24 08:48 | P.HPOB ---
History of Present Illness H&P Date: 01/24/22 Chief Complaint: Induction of labor 26-year-old presents at 37 weeks and 5 days for induction of labor due to gestational hypertension. The patient is also diet-controlled gestational diabetic. Her cervix is 1-2 cm dilated, 70% effaced, -2 station. She is not homa. heart tones are 135 with moderate variability and reactive. Review of Systems All systems: negative Constitutional: Denies chills, Denies fever Eyes: denies blurred vision, denies pain Ears, nose, mouth and throat: Denies headache, Denies sore throat Cardiovascular: Denies chest pain, Denies shortness of breath Respiratory: Denies cough Gastrointestinal: Denies abdominal pain, Denies diarrhea, Denies nausea, Denies vomiting Genitourinary: Denies dysuria, Denies hematuria Musculoskeletal: Denies myalgias Integumentary: Denies pruritus, Denies rash Neurological: Denies numbness, Denies weakness Psychiatric: Denies anxiety, Denies depression Endocrine: Denies fatigue, Denies weight change Past Medical History Past Medical History: No Reported History Additional Past Medical History / Comment(s): Obstetrics history: Patient had one previous vaginal delivery. This is her second and she's had care with me since the first trimester. She's been followed for gestational hypertension and gestational diabetes diet controlled. She is on labetalol and Procardia. History of Any Multi-Drug Resistant Organisms: None Reported Past Surgical History: Adenoidectomy, Tonsillectomy Past Anesthesia/Blood Transfusion Reactions: No Reported Reaction Past Psychological History: No Psychological Hx Reported Smoking Status: Never smoker Past Alcohol Use History: None Reported Past Drug Use History: None Reported - Past Family History Mother Family Medical History: Hypertension Medications and Allergies Home Medications Medication Instructions Recorded Confirmed Type Labetalol [Trandate] 100 mg PO BID 06/27/21 01/24/22 History Montelukast [Singulair] 10 mg PO DAILY 06/27/21 01/24/22 History NIFEdipine [NIFEdipine ER] 30 mg PO DAILY 06/27/21 01/24/22 History Omeprazole Magnesium [PriLOSEC OTC] 1 tab PO DAILY 01/24/22 01/24/22 History Allergies Allergy/AdvReac Type Severity Reaction Status Date / Time No Known Allergies Allergy Verified 01/24/22 06:07 Exam Osteopathic Statement: *. No significant issues noted on an osteopathic structural exam other than those noted in the History and Physical/Consult. Vital Signs Temp Pulse Resp BP Pulse Ox 01/24/22 06:06 96.8 F L 106 H 16 139/87 99 Intake and Output 01/23/22 01/24/22 01/24/22 22:59 06:59 14:59 Other: Weight 95.708 kg Heart: Regular rate and rhythm Lungs: Clear to auscultation bilaterally Abdomen: Soft, nontender Extremities: Negative Homans sign Results Result Diagrams: 01/24/22 06:14 Abnormal Lab Results - Last 24 Hours (Table) 01/24/22 Range/Units 06:14 WBC 11.6 H (3.8-10.6) k/uL Hgb 11.2 L (11.4-16.0) gm/dL Hct 33.5 L (34.0-46.0) % Neutrophils # 8.9 H (1.3-7.7) k/uL Assessment and Plan (1) 37 weeks gestation of Current Visit: Yes Status: Acute Code(s): Z3A.37 - 37 WEEKS GESTATION OF SNOMED Code(s): 69003152 (2) Gestational hypertension Current Visit: Yes Status: Acute Code(s): O13.9 - GESTATIONAL HTN W/O SIGNIFICANT PROTEINURIA, UNSP TRIMESTER SNOMED Code(s): 72388585 (3) Gestational diabetes mellitus, class A1 Current Visit: Yes Status: Acute Code(s): O24.410 - GESTATIONAL DIABETES MELLITUS IN , DIET CONTROLLED SNOMED Code(s): 07892359 Plan: 1. Admit to family place 2. Induction of labor with amniotomy and Pitocin 3. Anticipate normal vaginal delivery.
[2022-01-24] MEDS ORDERED: fentaNYL (PF) 50 MCG/ML 5 ML AMP ONE (09:45)
[2022-01-24] MEDS ORDERED: SODIUM CHLORIDE 0.9% 100 ML BAG ONE (09:45)
[2022-01-24] MEDS ORDERED: BUPIVACAINE (PF) 0.25% 30 ML VIAL ONE (09:45)
[2022-01-24] MEDS ORDERED: ROPIVACAINE 100 MG, fentaNYL (PF). 200 MCG in SODIUM CHLORIDE 0.9% 76 ML EPIDURAL ONE (10:32)
[2022-01-24] MEDS ORDERED: LANOLIN CREAM 5 GM TUBE TOPICAL PRN (14:51)
[2022-01-24] MEDS ORDERED: BENZOCAINE/MENTHOL SPRAY 1 GM/SPRAY AEROSOL TOPICAL PRN (14:51)
[2022-01-24] MEDS ORDERED: ACETAMINOPHEN TAB 325 MG TAB PO PRN (14:51)
[2022-01-24] MEDS ORDERED: diphenhydrAMINE 50 MG/ML 1 ML VIAL IVP PRN ×2 (14:51)
[2022-01-24] MEDS ORDERED: SIMETHICONE 80 MG CHEWABLE PO PRN (14:51)
[2022-01-24] MEDS ORDERED: HYDROCORTISONE 2.5% RECTAL CREAM 30 GM TUBE RECTAL PRN (14:51)
[2022-01-24] MEDS ORDERED: ZOLPIDEM 5 MG TAB PO PRN (14:51)
[2022-01-24] MEDS ORDERED: diphenhydrAMINE 50 MG CAP PO PRN (14:51)
[2022-01-24] MEDS ORDERED: diphenhydrAMINE 25 MG CAP PO PRN (14:51)
[2022-01-24] MEDS: IBUPROFEN 600 MG TAB PO PRN ×2 (15:25→23:00)
[2022-01-24] MEDS: SENNOSIDES-DOCUSATE SODIUM 1 EACH TAB PO SCH (19:47)
[2022-01-24 21:10] VITALS: RESP 16
[2022-01-24] MEDS: LABETALOL 100 MG TAB PO SCH (23:00)
[2022-01-25] MEDS: IBUPROFEN 600 MG TAB PO PRN ×2 (05:28→11:19)
[2022-01-25 07:47] LABS: Basophils % (A) 0 %; Eosinophils # (A) 0.1 k/uL (0-0.7); Eosinophils % (A) 1 %; Lymphocytes # (A) 1.5 k/uL (1.0-4.8); Lymphocytes % (A) 14 %; MCH 27.7 pg (25.0-35.0); MCHC 33.1 g/dL (31.0-37.0); MCV 83.5 fL (80.0-100.0); Mean Platelet Volume 7.5; Monocytes # (A) 0.4 k/uL (0-1.0); Monocytes % (A) 4 %; Neutrophils # (A) 8.5 k/uL (1.3-7.7); Neutrophils % (A) 79 %; Platelet Count 287 k/uL (150-450); RBC 3.47 m/uL (3.80-5.40); RDW 14.2 % (11.5-15.5); WBC 10.8 k/uL (3.8-10.6)
[2022-01-25 07:52] LABS: HGB 9.6 gm/dL (11.4-16.0)
--- NOTE | 2022-01-25 08:22 | P.PROBDLV ---
Vaginal Delivery Note - . Vaginal Delivery Note: 26-year-old presents at 37 weeks and 5 days for induction of labor due to gestational hypertension. The patient is also diet-controlled gestational diabetic. Her cervix is 1-2 cm dilated, 70% effaced, -2 station. She is not homa. heart tones are 135 with moderate variability and reactive. Pitocin augmentation was started and amniotomy performed at 7:22 AM clear fluid noted. When she was uncomfortable she did get an epidural. Her cervix was completely dilated at 1355. She pushed, delivered a viable male infant over intact perineum under epidural anesthesia at 1418. Head delivered OA, anterior shoulder delivered gentle downward guidance followed by posterior shoulder and rest of body. Nose and mouth bulb suctioned, cord clamped and cut, placed on mother's abdomen. Apgars 9, 9, weight 6 lbs. 14 oz. Assented delivered spontaneously, intact with three-vessel cord at 1420. Vagina, cervix, and perineum were inspected. Second-degree midline laceration was repaired with 3-0 Vicryl. Estimated blood loss 200 mL. Mother and baby in stable condition.
--- NOTE | 2022-01-25 08:24 | P.DS ---
Providers Date of admission: 01/24/22 05:49 Expected date of discharge: 01/25/22 Attending physician: Ashleigh Silva Primary care physician: Stated None - Discharge Diagnosis(es) (1) 37 weeks gestation of Current Visit: Yes Status: Resolved (2) Gestational hypertension Current Visit: Yes Status: Resolved (3) Gestational diabetes mellitus, class A1 Current Visit: Yes Status: Resolved (4) Status post normal vaginal delivery Current Visit: No Status: Acute Hospital Course: Patient presented for induction of labor due to gestational hypertension. her blood pressures continued to be controlled on labetalol 100 mg twice a day and Procardia 60 XL. She denies nausea, vomiting, chest pain, shortness of breath or any calf pain. She will be discharged home day #1 in stable condition to follow-up with me in one week for a blood pressure check. Plan - Discharge Summary New Discharge Prescriptions: New Labetalol [Trandate] 100 mg PO BID tab Ibuprofen [Motrin] 600 mg PO Q6HR PRN #30 tab PRN Reason: Mild Pain (Scale 1 To 3) NIFEdipine XL [Procardia XL] 60 mg PO DAILY tab No Action Montelukast [Singulair] 10 mg PO DAILY Omeprazole Magnesium [PriLOSEC OTC] 1 tab PO DAILY NIFEdipine [NIFEdipine ER] 30 mg PO DAILY Labetalol [Trandate] 100 mg PO BID Discharge Medication List Labetalol [Trandate] 100 mg PO BID 06/27/21 [History] Montelukast [Singulair] 10 mg PO DAILY 06/27/21 [History] NIFEdipine [NIFEdipine ER] 30 mg PO DAILY 06/27/21 [History] Omeprazole Magnesium [PriLOSEC OTC] 1 tab PO DAILY 01/24/22 [History] Ibuprofen [Motrin] 600 mg PO Q6HR PRN #30 tab 01/25/22 [Rx] Labetalol [Trandate] 100 mg PO BID tab 01/25/22 [Rx] NIFEdipine XL [Procardia XL] 60 mg PO DAILY tab 01/25/22 [Rx] Follow up Appointment(s)/Referral(s): Ashleigh Silva DO [Doctor of Osteopathic Medicine] - 03/11/22 3:45 pm
[2022-01-25] MEDS: SENNOSIDES-DOCUSATE SODIUM 1 EACH TAB PO SCH (08:36)
[2022-01-25] MEDS: LABETALOL 100 MG TAB PO SCH (08:37)
[2022-01-25 09:03] VITALS: BP 144/88; PULSE 83; TEMP 97.6
== END 2022-01-25 15:55 | disposition home or self-care (01) | DRG 807 ==
LOC: 4FBP 01-24 05:49
PROVIDERS: ADMIT Obstetrics & Gynecology; ATTEND Obstetrics & Gynecology
PROC: 3E033VJ Introduction of Other Hormone into Peripheral Vein, Percutaneous Approach (ICD-10-PCS; principal; 2022-01-24)
PROC: 10E0XZZ Delivery of Products of Conception, External Approach (ICD-10-PCS; 2022-01-24)
PROC: 0KQM0ZZ Repair Perineum Muscle, Open Approach (ICD-10-PCS; 2022-01-24)
PROC: 10907ZC Drainage of Amniotic Fluid, Therapeutic from Products of Conception, Via Natural or Artificial Opening (ICD-10-PCS; 2022-01-24)
PROC: 3E0R3BZ Introduction of Anesthetic Agent into Spinal Canal, Percutaneous Approach (ICD-10-PCS; 2022-01-24)
DX: O13.4 Gestational [pregnancy-induced] hypertension without significant proteinuria, complicating childbirth (principal); Z37.0 Single live birth; O24.420 Gestational diabetes mellitus in childbirth, diet controlled; O12.14 Gestational proteinuria, complicating childbirth; O70.1 Second degree perineal laceration during delivery; Z3A.37 37 weeks gestation of pregnancy; Z82.49 Family history of ischemic heart disease and other diseases of the circulatory system; Z79.899 Other long term (current) drug therapy
CPT/HCPCS: 85025; 86850; 86900; 86901; 88307

== ENCOUNTER → 2022-10-19 | Outpatient (CLI) | payer OTHER ==
--- NOTE | 2022-10-19 12:00 | XR ---
EXAMINATION TYPE: XR lumbar spine 2 or 3V DATE OF EXAM: 10/19/2022 CLINICAL HISTORY: Burning pain into right leg since injury in April. TECHNIQUE: Frontal and lateral images of the lumbar spine are obtained. COMPARISON: Scoliosis series 2009 FINDINGS: There are 5 lumbar type vertebral bodies identified. The lumbar spine shows satisfactory alignment without evidence of acute fracture or dislocation. Vertebral body heights and disk space he ights are within normal limits. The overlying soft tissue appears unremarkable. IMPRESSION: Unremarkable study.
== END | disposition home or self-care (01) ==
LOC: RADXRMAIN 11:12
PROVIDERS: ATTEND Nurse Practitioner Family
DX: M46.07 Spinal enthesopathy, lumbosacral region (principal)
CPT/HCPCS: 72100